=== PATIENT | female | born 1965 | race Hispanic/Latino ===

== ENCOUNTER 2017-07-04 03:11 | Emergency (ER) | payer SELFPAY ==
[~2017-07-04] VITALS: Ht 152.4 cm; Wt 66.2 kg
[2017-07-04] MEDS ORDERED: ACETAMINOPHEN 325 MG TAB PO ONE (03:30)
--- NOTE | 2017-07-04 05:05 | Diagnostic Imaging Report ---
EXAM: CHEST SINGLE (PORTABLE), AP 1 view DATE: 07/04/2017 3:27 AM Time stamp on exam: 0404 hours INDICATION: Cough for 3 days COMPARISON: None FINDINGS: LINES/TUBES: None LUNGS: No consolidations or edema. PLEURA: No effusions or pneumothorax. HEART AND MEDIASTINUM: Normal size and contour. BONES AND SOFT TISSUES: No acute findings. IMPRESSION: No evidence of pneumonia Signed by: Dr. Miri Costello M.D. on 07/04/2017 5:01 AM
[2017-07-04 05:22] VITALS: BP 132/79
== END 2017-07-04 05:29 | disposition home or self-care (01) ==
LOC: ER 03:11
DX: R50.9 Fever, unspecified (principal); R05 Cough; J11.1 Influenza due to unidentified influenza virus with other respiratory manifestations; J31.0 Chronic rhinitis; I10 Essential (primary) hypertension; E11.9 Type 2 diabetes mellitus without complications
CPT/HCPCS: 71010; 87400; 99282